=== PATIENT | female | born 1945 | race Caucasian/White ===

== ENCOUNTER 2025-03-15 08:35 | Inpatient (IN) ==
[2025-03-15 09:13] LABS: Basophils # (auto) 0.02 K/uL (0.00-0.20); Basophils % (auto) 0.4 %; Eosinophils # (auto) 0.02 K/uL (0.00-0.50); Eosinophils % (auto) 0.4 %; Hematocrit (blood only) 40.5 % (37.0-47.0); Immature Granulocytes # (auto) 0.02 K/uL (0.01-0.20); Immature Granulocytes % (auto) 0.4 %; Lymphocytes # (auto) 1.27 K/uL (1.20-3.40); Mean Corpuscular Hemoglobin 27.1 pg (25.0-34.0); Mean Corpuscular Hgb Conc 32.1 g/dL (32.0-36.0); Mean Corpuscular Volume 84.4 fL (80.0-100.0); Mean Platelet Volume 11.9 fL (9.4-12.4); Monocytes # (auto) 0.36 K/uL (0.11-0.59); Monocytes % (auto) 7.4 %; Neutrophils % (auto) 65.4 %; Platelet Count 171 K/uL (130-400); RDW Coefficient of Variation 14.5 % (11.5-14.5); RDW Standard Deviation 44.6 fL (36.4-46.3); White Blood Count 4.89 K/ul (4.8-10.8)
--- NOTE | 2025-03-15 09:13 | Emergency Department Note ---
Impression & Plan Symptomatic bradycardia, CHB (complete heart block), HTN (hypertension) ED Provider Note Provider: Allan Cason MD CHIEF COMPLAINT: Short of breath, weakness HISTORY OF PRESENT ILLNESS: Patient is a 79-year-old female history of atrial fibrillation per records presenting here today stating over the past week or so some increased shortness of breath and has been suffering from worsening fatigue. Patient states an occasional cough and sinus congestion but denies a significant fevers or sore throat. No abdominal pain or nausea. Denies any falls but has felt a little bit weak and this morning feeling weak even walking from bedroom to the bathroom and thus came here for evaluation. Noted by EMS to be hypertensive with a low heart rate. Patient states he been feeling cold recently. Denies to me any chest pain although EMS reported little bit of pain in the left chest to palpation. States that again when she gets up and tries to move she feels dizzy and in bed mainly now just feels fatigued. PAST MEDICAL HISTORY: As noted above MEDICATIONS: Not currently taking any SOCIAL HISTORY: Originally from [place], lives by herself with 2 cats PHYSICAL EXAM: GENERAL: alert and oriented in no acute distress on stretcher Head: normocephalic and atraumatic EYES: No injection, discharge or icterus. EOMI. NECK: Trachea midline. ENT: Mucous membranes pink and moist. LUNGS: Airway patent. No retractions. Breath sounds clear HEART: Regular bradycardic rate and rhythm. No chest wall tenderness ABDOMEN: Soft and non-tender, without guarding or rebound. SKIN: Acyanotic, warm, dry, without rashes EXTREMITIES: Without tenderness trace pedal edema bilaterally with some chronic dry eczema present on the lower legs. NEUROLOGICAL: No focal deficits. No aphasia. No facial droop or slurred speech. EK bpm appears to be a complete heart block with a left bundle branch block. No clear acute ST segment elevation or depression. CONTINUOUS CARDIAC MONITORING: was ordered and showed a heart rate of 30s to 40s bpm in complete heart block Patient's laboratory studies and imaging reviewed. Differential includes Infection, dehydration, metabolic abnormality, hypo/hyperglycemia, electrolyte disturbance, anemia, hypoxia, cardiac sources, intracerebral event, toxicologic, neurologic, as well as other pathologies. IMPRESSION/MEDICAL DECISION MAKING: Patient's easily alert and arousable without focal neurological deficit on exam. Notably profoundly bradycardic with significant hypertension. Denies any chest pain to me. Dyspnea on exertion and exercise intolerance. Review of EKG appears to show a complete heart block. Records indicate history of atrial fibrillation the patient denies known cardiac history and states he is currently not taking any medications. Basic labs are sent including troponin and a Lyme screen and TSH. Not on oxygen on room air here not hypoxic. Do question her bradycardia causing her symptoms and doubt this represents dissection or PE. Did reach out to discuss with cardiology Dr. Palomares these findings. No significant leukocytosis or anemia. No skin electrolyte abnormality. Normal renal function. Troponin mildly elevated 29. Again no chest pain. No evidence of UTI. TSH normal. Pacing pads in place. Patient stable at this point will defer other medications. Will bring in for further cardiac evaluation and care. Hospitalist team consulted. Patient agreeable to this plan. DIAGNOSIS: Complete heart block, symptomatic bradycardia, hypertension DISPOSITION: Hospitalist will evaluate Patient was agreeable with this plan. Critical Care I have personally spent 32 minutes of critical care time in the direct management of this patient. This includes bedside care, interpretation of diagnostic studies, and testing, discussion with consultants, patient, and family members, and other required patient management activities. These 32 minutes is in excess of all separately billable procedures. 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 Feels Safe at Home: Yes Diet: regular caffeine: Yes (tea) during the past year weight has: remained stable Dental Care, Regularly: No Physical Activity Frequency: 1-2 Times per Week Seatbelt Use: always Sunscreen Use: No Allergies Allergies Allergy/AdvReac Type Severity Reaction Status Date / Time No Known Allergies Allergy Unknown Verified 01/06/25 13:04 Home Meds Home Medications Medication Instructions Recorded Confirmed aspirin 81 mg tablet,delayed 81 mg PO DAILY 03/25/19 03/15/25 release ([place] Low Dose Aspirin) cyanocobalamin (vitamin B-12) 5,000 mcg sublingual DAILY 03/25/19 03/15/25 5,000 mcg/mL sublingual drops (Vitamin B-12) metformin 500 mg tablet,extended 500 mg PO DAILY 03/15/25 03/15/25 release 24 hr Previous Rx's Medication Instructions Recorded oxybutynin chloride 5 mg 5 mg PO DAILY #30 tabs 01/06/25 tablet,extended release 24 hr cholecalciferol (vitamin D3) 1,250 50,000 unit PO .1qw #14 caps 01/09/25 mcg (50,000 unit) capsule glimepiride 1 mg tablet 1 mg PO DAILY #30 tabs 02/03/25 tramadol 50 mg tablet 50 mg PO Q6H PRN Pain #100 tabs 03/03/25 Results & Data (ED) Vital Signs Vital Signs - 24 hr 03/15/25 08:45 03/15/25 08:46 03/15/25 08:47 Temperature 36.8 C Temperature Source Oral Pulse Rate 39 L 40 L Pulse Rate from SpO2 Sensor Pulse Rhythm Regular Pulse Strength Normal Respiratory Rate 20 Respiratory Effort / Characteristics Non-Labored Respiratory Depth Normal Blood Pressure 211/51 H 224/59 H Blood Pressure Mean 104 107 Blood Pressure Position Lying Pulse Oximetry 95 Oxygen Delivery Method Room Air Sepsis Recent Fever Within 48 Hours No Sepsis New/Unexplained Change in Mental Status N/A Sepsis Action Taken by Nursing No Action Required 03/15/25 08:48 03/15/25 08:56 03/15/25 09:00 Temperature Temperature Source Pulse Rate 38 L 40 L Pulse Rate from SpO2 Sensor 38 L 40 L Pulse Rhythm Pulse Strength Respiratory Rate 22 28 H Respiratory Effort / Characteristics Respiratory Depth Blood Pressure Blood Pressure Mean Blood Pressure Position Pulse Oximetry 93 94 95 Oxygen Delivery Method Room Air Sepsis Recent Fever Within 48 Hours Sepsis New/Unexplained Change in Mental Status Sepsis Action Taken by Nursing 03/15/25 09:06 03/15/25 09:30 03/15/25 09:33 Temperature Temperature Source Pulse Rate 40 L 40 L Pulse Rate from SpO2 Sensor 39 L 43 L Pulse Rhythm Pulse Strength Respiratory Rate 17 16 Respiratory Effort / Characteristics Respiratory Depth Blood Pressure 195/59 H Blood Pressure Mean 83 Blood Pressure Position Pulse Oximetry 94 91 Oxygen Delivery Method Sepsis Recent Fever Within 48 Hours Sepsis New/Unexplained Change in Mental Status Sepsis Action Taken by Nursing 03/15/25 09:45 03/15/25 10:02 03/15/25 10:15 Temperature Temperature Source Pulse Rate 37 L 40 L Pulse Rate from SpO2 Sensor 37 L 39 L Pulse Rhythm Pulse Strength Respiratory Rate 14 22 Respiratory Effort / Characteristics Respiratory Depth Blood Pressure 181/55 H Blood Pressure Mean 112 Blood Pressure Position Pulse Oximetry 94 95 Oxygen Delivery Method Sepsis Recent Fever Within 48 Hours Sepsis New/Unexplained Change in Mental Status Sepsis Action Taken by Nursing 03/15/25 10:48 03/15/25 10:56 03/15/25 11:09 Temperature Temperature Source Pulse Rate 40 L 39 L Pulse Rate from SpO2 Sensor 40 L 39 L Pulse Rhythm Pulse Strength Respiratory Rate 23 22 Respiratory Effort / Characteristics Respiratory Depth Blood Pressure 221/81 H 221/81 H Blood Pressure Mean 127 157 Blood Pressure Position Pulse Oximetry 96 96 Oxygen Delivery Method Sepsis Recent Fever Within 48 Hours Sepsis New/Unexplained Change in Mental Status Sepsis Action Taken by Nursing Laboratory Data 03/15/25 08:45 03/15/25 08:45 Lab Results 03/15/25 03/15/25 03/15/25 Range/Units 08:45 09:15 09:17 WBC 4.89 (4.8-10.8) K/ul RBC 4.80 (4.20-5.40) M/uL Hgb 13.0 (12.0-16.0) g/dl Hct 40.5 (37.0-47.0) % MCV 84.4 (80.0-100.0) fL MCH 27.1 (25.0-34.0) pg MCHC 32.1 (32.0-36.0) g/dL RDW Std Deviation 44.6 (36.4-46.3) fL RDW Coeff of Nasima 14.5 (11.5-14.5) % Plt Count 171 (130-400) K/uL MPV 11.9 (9.4-12.4) fL Immature Gran % (Auto) 0.4 % Neut % (Auto) 65.4 % Lymph % (Auto) 26.0 % [place] % (Auto) 7.4 % Eos % (Auto) 0.4 % Baso % (Auto) 0.4 % Neut # (Auto) 3.20 (1.40-6.50) K/uL Lymph # (Auto) 1.27 (1.20-3.40) K/uL [place] # (Auto) 0.36 (0.11-0.59) K/uL Eos # (Auto) 0.02 (0.00-0.50) K/uL Baso # (Auto) 0.02 (0.00-0.20) K/uL Immature Gran # (Auto) 0.02 (0.01-0.20) K/uL PT 11.3 (9.0-12.0) Seconds INR 1.0 (0.9-1.1) APTT 27 (21-31) Seconds PTT Ratio 1.0 Sodium 138 (136-145) mmol/L Potassium 4.5 (3.5-5.1) mmol/L Chloride 105 (98-107) mmol/L Carbon Dioxide 26 (21-32) mmol/L Anion Gap 7 (3-11) BUN 19 (6-23) mg/dl Creatinine 1.13 (0.6-1.2) mg/dl Est Cr Clr Drug Dosing 42.5 ml/min eGFR 48.88 BUN/Creatinine Ratio 16.8 (10-20) Glucose 152 H (70-99(Fasting)) mg/dl Calcium 9.1 (8.6-10.3) mg/dl Magnesium 2.1 (1.7-2.4) mg/dl Total Bilirubin 1.1 H (0.2-1.0) mg/dl AST 39 (13-39) U/L ALT 34 (7-52) U/L Alkaline Phosphatase 94 (34-104) U/L Troponin I High Sens 29.4 H (0-14) pg/ml Total Protein 7.1 (6.0-8.3) gm/dl Albumin 3.9 (3.4-5.0) gm/dl Globulin 3.2 (2.5-4.0) gm/dl Albumin/Globulin Ratio 1.2 (0.9-2) TSH 1.563 (0.300-4.500) uIu/ml Urine Color Yellow Urine Appearance Clear (Clear) Urine pH 6.0 (4.5-7.5) Ur Specific [place] 1.007 (1.000-1.030) Urine Protein 1+ H (Negative) Urine Glucose (UA) Negative (Negative) Urine Ketones Trace H (Negative) Urine Blood 1+ H (Negative) Urine Nitrite Negative (Negative) Urine Bilirubin Negative (Negative) Urine Urobilinogen Negative (Negative) Ur Leukocyte Esterase Negative (Negative) Urine WBC (Auto) 0-5 (0-5) /hpf Urine RBC (Auto) 0-2 (0-2) /hpf U Hyaline Cast (Auto) 0-2 (0-2) /lpf U Epithel Cells (Auto) 0-2 (0-2) /hpf Urine Bacteria (Auto) None Seen (None Seen) Adenovirus (PCR) Not Detected (NotDetected) B. pertussis DNA (PCR) Not Detected (NotDetected) B.parapertussis DNA PCR Not Detected (NotDetected) Lyme Disease Screen Negative (Negative) C. pneumoniae DNA (PCR) Not Detected (NotDetected) Coronavirus OC43 (PCR) Not Detected (NotDetected) Coronavirus HKU1 (PCR) Not Detected (NotDetected) Coronavirus 229E (PCR) Not Detected (NotDetected) SARS-CoV-2 (PCR) Not Detected (NotDetected) Coronavirus NL63 (PCR) Not Detected (NotDetected) Human Metapneumovir PCR Not Detected (NotDetected) Influenza Type A (PCR) Not Detected (NotDetected) Influenza Type B (PCR) Not Detected (NotDetected) M. pneumoniae (PCR) Not Detected (NotDetected) Parainfluenza 1 (PCR) Not Detected (NotDetected) Parainfluenza 2 (PCR) Not Detected (NotDetected) Parainfluenza 3 (PCR) Not Detected (NotDetected) Parainfluenza 4 (PCR) Not Detected (NotDetected) RSV (PCR) Not Detected (NotDetected) Entero/Rhino (PCR) Not Detected (NotDetected) 03/15/25 Range/Units 10:45 WBC (4.8-10.8) K/ul RBC (4.20-5.40) M/uL Hgb (12.0-16.0) g/dl Hct (37.0-47.0) % MCV (80.0-100.0) fL MCH (25.0-34.0) pg MCHC (32.0-36.0) g/dL RDW Std Deviation (36.4-46.3) fL RDW Coeff of Nasima (11.5-14.5) % Plt Count (130-400) K/uL MPV (9.4-12.4) fL Immature Gran % (Auto) % Neut % (Auto) % Lymph % (Auto) % [place] % (Auto) % Eos % (Auto) % Baso % (Auto) % Neut # (Auto) (1.40-6.50) K/uL Lymph # (Auto) (1.20-3.40) K/uL [place] # (Auto) (0.11-0.59) K/uL Eos # (Auto) (0.00-0.50) K/uL Baso # (Auto) (0.00-0.20) K/uL Immature Gran # (Auto) (0.01-0.20) K/uL PT (9.0-12.0) Seconds INR (0.9-1.1) APTT (21-31) Seconds PTT Ratio Sodium (136-145) mmol/L Potassium (3.5-5.1) mmol/L Chloride (98-107) mmol/L Carbon Dioxide (21-32) mmol/L Anion Gap (3-11) BUN (6-23) mg/dl Creatinine (0.6-1.2) mg/dl Est Cr Clr Drug Dosing ml/min eGFR BUN/Creatinine Ratio (10-20) Glucose (70-99(Fasting)) mg/dl Calcium (8.6-10.3) mg/dl Magnesium (1.7-2.4) mg/dl Total Bilirubin (0.2-1.0) mg/dl AST (13-39) U/L ALT (7-52) U/L Alkaline Phosphatase (34-104) U/L Troponin I High Sens 33.6 H (0-14) pg/ml Total Protein (6.0-8.3) gm/dl Albumin (3.4-5.0) gm/dl Globulin (2.5-4.0) gm/dl Albumin/Globulin Ratio (0.9-2) TSH (0.300-4.500) uIu/ml Urine Color Urine Appearance (Clear) Urine pH (4.5-7.5) Ur Specific [place] (1.000-1.030) Urine Protein (Negative) Urine Glucose (UA) (Negative) Urine Ketones (Negative) Urine Blood (Negative) Urine Nitrite (Negative) Urine Bilirubin (Negative) Urine Urobilinogen (Negative) Ur Leukocyte Esterase (Negative) Urine WBC (Auto) (0-5) /hpf Urine RBC (Auto) (0-2) /hpf U Hyaline Cast (Auto) (0-2) /lpf U Epithel Cells (Auto) (0-2) /hpf Urine Bacteria (Auto) (None Seen) Adenovirus (PCR) (NotDetected) B. pertussis DNA (PCR) (NotDetected) B.parapertussis DNA PCR (NotDetected) Lyme Disease Screen (Negative) C. pneumoniae DNA (PCR) (NotDetected) Coronavirus OC43 (PCR) (NotDetected) Coronavirus HKU1 (PCR) (NotDetected) Coronavirus 229E (PCR) (NotDetected) SARS-CoV-2 (PCR) (NotDetected) Coronavirus NL63 (PCR) (NotDetected) Human Metapneumovir PCR (NotDetected) Influenza Type A (PCR) (NotDetected) Influenza Type B (PCR) (NotDetected) M. pneumoniae (PCR) (NotDetected) Parainfluenza 1 (PCR) (NotDetected) Parainfluenza 2 (PCR) (NotDetected) Parainfluenza 3 (PCR) (NotDetected) Parainfluenza 4 (PCR) (NotDetected) RSV (PCR) (NotDetected) Entero/Rhino (PCR) (NotDetected) Administered Medications Hydralazine HCl (Hydralazine Hcl 20 Mg/Ml Vial) 10 mg IV Q6 PRN PRN Reason: Hypertension Stop: 04/14/25 14:13 Last Admin: 03/15/25 14:49 Dose: 10 mg Documented By: E Imaging Data Radiologist's Impression: Chest X-Ray 03/15/25 09:00 XR chest 1V portable CLINICAL HISTORY: Dyspnea COMPARISON STUDY: 03/25/2019 FINDINGS: Stable cardiomegaly without pulmonary vascular congestion. No effusion, consolidation, or pneumothorax. IMPRESSION: No acute findings. ACT 112: Negative or not required by law. Electronically signed by: Edgardo Anderson M.D. 03/15/2025 9:55 AM Discharge Plan Visit Data Chief Complaint: Cardiac Assessment Stated Complaint: SOB, RIB PAIN, BRADYCARDIA ED Provider: Allan Cason Discharge Problem: Symptomatic bradycardia, CHB (complete heart block), HTN (hypertension) Patient Disposition: Admitted As Inpatient Condition: Serious Discharge Instructions Interventions: ED Discharge Assessment Last Done: 03/15/25 14:13 ED AMA/LWBS Discharge Assessment Last Done: 03/15/25 15:15
[2025-03-15 09:35] LABS: Albumin Globulin Ratio 1.2 (0.9-2); Albumin Level 3.9 gm/dl (3.4-5.0); BUN Creatinine Ratio 16.8 (10-20); Bilirubin,Total 1.1 mg/dl (0.2-1.0); Calcium 9.1 mg/dl (8.6-10.3); Creatinine Clr Calc Pharmacy 42.5 ml/min; Globulin 3.2 gm/dl (2.5-4.0); Magnesium 2.1 mg/dl (1.7-2.4); Potassium 4.5 mmol/L (3.5-5.1); Total Protein 7.1 gm/dl (6.0-8.3)
[2025-03-15 09:41] LABS: Appearance Urine Clear (Clear); Bacteria Urine Automated None Seen (None Seen); Bilirubin Urine Negative (Negative); Blood Urine 1+ (Negative); Cast Urine Automated 0-2 /lpf (0-2); Color Urine Yellow; Epithelial Cell Urine Auto 0-2 /hpf (0-2); Glucose Urine UA Negative (Negative); Ketones Urine Trace (Negative); Leukocyte Esterase Urine Negative (Negative); Nitrite Urine Negative (Negative); Protein Urine 1+ (Negative); RBC Urine Automated 0-2 /hpf (0-2); Specific Gravity Urine 1.007 (1.000-1.030); Urobilinogen Urine Negative (Negative); WBC Urine Automated 0-5 /hpf (0-5)
[2025-03-15 09:41] LABS: Troponin I High Sensitivity 29.4 pg/ml (0-14)
[2025-03-15 09:43] LABS: Partial Thromboplastin Time 27 Seconds (21-31); Prothrombin Time 11.3 Seconds (9.0-12.0)
[2025-03-15 09:50] LABS: Thyroid Stimulating Hormone 1.563 uIu/ml (0.300-4.500)
--- NOTE | 2025-03-15 09:57 | XRay Report ---
XR chest 1V portable CLINICAL HISTORY: Dyspnea COMPARISON STUDY: 03/25/2019 FINDINGS: Stable cardiomegaly without pulmonary vascular congestion. No effusion, consolidation, or p neumothorax. IMPRESSION: No acute findings. ACT 112: Negative or not required by law. Electronically signed by: Edgardo Anderson M.D. 03/15/2025 9:55 AM
[2025-03-15 10:16] LABS: Adenovirus PCR Not Detected (NotDetected); Bordetella parapertussis PCR Not Detected (NotDetected); Bordetella pertussis PCR Not Detected (NotDetected); Chlamydia pneumoniae PCR Not Detected (NotDetected); Coronavirus 229E PCR Not Detected (NotDetected); Coronavirus CoV-2 (COVID19)PCR Not Detected (NotDetected); Coronavirus HKU1 PCR Not Detected (NotDetected); Coronavirus NL63 PCR Not Detected (NotDetected); Coronavirus OC43PCR Not Detected (NotDetected); Human Metapneumovirus PCR Not Detected (NotDetected); Influenza A PCR Not Detected (NotDetected); Influenza B PCR Not Detected (NotDetected); Mycoplasma pneumoniae PCR Not Detected (NotDetected); Parainfluenza Virus 1 PCR Not Detected (NotDetected); Parainfluenza Virus 2 PCR Not Detected (NotDetected); Parainfluenza Virus 3 PCR Not Detected (NotDetected); Parainfluenza Virus 4 PCR Not Detected (NotDetected); Respiratory Syncytial VirusPCR Not Detected (NotDetected); Rhinovirus/Enterovirus PCR Not Detected (NotDetected)
--- NOTE | 2025-03-15 10:42 | Cardiology Consultation ---
Date of Consultation March 15, 2025 Assessment & Plan (1) Symptomatic bradycardia: (2) Second degree AV block: (3) H/O atrial fibrillation without current medication: Plan 1. Symptomatic bradycardia: This is the likely etiology of her worsening symptoms. She is known to have an element of chronic fatigue. However, her exertional intolerance and worsening breathing difficulty is new. This is likely related to her bradycardia. 2. Second-degree AV block: She appears to have 2-1 AV conduction. Also wide- complex QRS consistent with left bundle branch block. This would imply in for his seen disease. This is resulted in the associated bradycardia and symptoms. Not on any medications which would cause bradycardia. Lyme negative. No other reversible etiology. I think the treatment is a permanent pacemaker. I discussed the procedure and the attendant risks and benefits with the patient. Will plan on proceeding tomorrow morning. She is to stay on bedrest until that time. If she has an element of hemodynamic compromise between now and then we can take her to the [facility] for a temporary transvenous pacemaker. 3. Atrial fibrillation: This seems to be a very remote diagnosis. She describes wearing a monitor at 1 point in March told she had some atrial fib rillation. She also reports seeing a long wall shear operator at some point in being told this was not a clinical concern. I could not find any documentation in her [facility] or [facility] records regarding this particular problem. She has worn some monitors over the years. These reports are available in her [facility] record and there is no mention of atrial fibrillation. I do not think we need to pursue this at this time. With a pacemaker we will have continuous monitoring of her atrial rhythm. History of Present Illness Reason for Consultation: Symptomatic bradycardia Requesting Physician: Janey Attending Physician: Madhavi History of Present Illness The patient is an 79-year-old woman without a known history of cardiac disease who presents to the emergency room with symptoms of worsening fatigue, exercise intolerance and exertional dyspnea. Patient states that in general she has been more fatigued lately. She has had some more difficulty ambulating and walking for long distances over the past few months. However, over the past 2 weeks the symptoms have worsened significantly and today bother her enough that she sought medical attention. She is fairly sedentary overall. She ambulates with a cane. Her daily activities generally involve getting around her home or some light outdoor activity. Recently she has been having shortness of breath with mild activity. No associated dizziness or lightheadedness. No syncope. No exertional chest pain. No sense of palpitations currently. Her emergency room evaluation revealed significant bradycardia with second- degree AV block. The patient denied other recent constitutional symptoms such as fevers or chills. She reports some mild lower extremity edema which waxes and wanes in severity. She notices some occasional palpitations at nighttime but often with coughing or deep breathing these resolved promptly. No extended episodes. Very remote history of syncope. None recently. Allergies Allergy/AdvReac Type Severity Reaction Status Date / Time No Known Allergies Allergy Unknown Verified 01/06/25 13:04 Home Medications Medication Instructions Recorded Confirmed Type aspirin 81 mg tablet,delayed 81 mg PO DAILY 03/25/19 03/15/25 History release (Gu[place]upe Low Dose Aspirin) cyanocobalamin (vitamin B-12) 5,000 mcg sublingual DAILY 03/25/19 03/15/25 History 5,000 mcg/mL sublingual drops (Vitamin B-12) oxybutynin chloride 5 mg 5 mg PO DAILY #30 tabs 01/06/25 03/15/25 Rx tablet,extended release 24 hr cholecalciferol (vitamin D3) 1,250 50,000 unit PO .1qw #14 caps 01/09/25 03/15/25 Rx mcg (50,000 unit) capsule glimepiride 1 mg tablet 1 mg PO DAILY #30 tabs 02/03/25 03/15/25 Rx tramadol 50 mg tablet 50 mg PO Q6H PRN Pain #100 tabs 03/03/25 03/15/25 Rx metformin 500 mg tablet,extended 500 mg PO DAILY 03/15/25 03/15/25 History release 24 hr Patient History Surgical History History of cholecystectomy Social History (Updated 01/06/25 @ 13:06 by MERARI Corral) Smoking Status: Former smoker Second Hand Exposure: No; Do You Dip or Chew Tobacco: No; Hx Alcohol Use: No Hx Substance Use: No Preferred Language: Maori marital status: Current Living Situation: Alone Current Living Situation Comment: 2 cats 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 Mood affect appear normal. She answered all questions appropriately. HEENT: Sclerae are anicteric. Pupils are equal and reactive to light and accommodation. Extraocular movements were intact. Neuro: Cranial nerves intact Lungs: Lungs are clear to auscultation bilaterally. There are no rales wheezes or rhonchi. She has normal respiratory effort without use of accessory muscles. There is normal pulmonary excursion. Cardiac: The rhythm was regular. Rate was slow. S1 and S2 were normal. Soft holosystolic murmur. The PMI was not markedly displaced on palpation. Abdomen: The abdomen was soft and nontender. Extremities: Patient has bilateral radial pulses that are equal in intensity. There is no evidence cyanosis or clubbing. Mild lower extremity edema bilater ally. Dry skin. Some mild erythema around the ankles bilaterally. Skin: There are no rashes noted on examination today. Results & Data Vital Signs (Past 12 Hours) Vital Signs Temp Pulse Resp BP Pulse Ox O2 Del Method 03/15/25 10:15 40 L 22 95 03/15/25 10:02 181/55 H 03/15/25 09:45 37 L 14 94 03/15/25 09:33 40 L 16 91 03/15/25 09:30 195/59 H 03/15/25 09:06 40 L 17 94 03/15/25 09:00 40 L 28 H 95 03/15/25 08:56 94 Room Air 03/15/25 08:48 38 L 22 93 03/15/25 08:47 224/59 H 03/15/25 08:46 36.8 C 40 L 20 211/51 H 95 Room Air 03/15/25 08:45 39 L Laboratory Results Abnormal Lab Results 03/15/25 03/15/25 03/15/25 08:45 09:15 09:17 WBC 4.89 RBC 4.80 Hgb 13.0 Hct 40.5 MCV 84.4 MCH 27.1 MCHC 32.1 RDW Std Deviation 44.6 RDW Coeff of Nasima 14.5 Plt Count 171 MPV 11.9 Immature Gran % (Auto) 0.4 Neut % (Auto) 65.4 Lymph % (Auto) 26.0 [place] % (Auto) 7.4 Eos % (Auto) 0.4 Baso % (Auto) 0.4 Neut # (Auto) 3.20 Lymph # (Auto) 1.27 [place] # (Auto) 0.36 Eos # (Auto) 0.02 Baso # (Auto) 0.02 Immature Gran # (Auto) 0.02 PT 11.3 INR 1.0 APTT 27 PTT Ratio 1.0 Sodium 138 Potassium 4.5 Chloride 105 Carbon Dioxide 26 Anion Gap 7 BUN 19 Creatinine 1.13 Est Cr Clr Drug Dosing 42.5 eGFR 48.88 BUN/Creatinine Ratio 16.8 Glucose 152 H Calcium 9.1 Magnesium 2.1 Total Bilirubin 1.1 H AST 39 ALT 34 Alkaline Phosphatase 94 Troponin I High Sens 29.4 H Total Protein 7.1 Albumin 3.9 Globulin 3.2 Albumin/Globulin Ratio 1.2 TSH 1.563 Urine Color Yellow Urine Appearance Clear Urine pH 6.0 Ur Specific [place] 1.007 Urine Protein 1+ H Urine Glucose (UA) Negative Urine Ketones Trace H Urine Blood 1+ H Urine Nitrite Negative Urine Bilirubin Negative Urine Urobilinogen Negative Ur Leukocyte Esterase Negative Urine WBC (Auto) 0-5 Urine RBC (Auto) 0-2 U Hyaline Cast (Auto) 0-2 U Epithel Cells (Auto) 0-2 Urine Bacteria (Auto) None Seen Adenovirus (PCR) Not Detected B. pertussis DNA (PCR) Not Detected B.parapertussis DNA PCR Not Detected Lyme Disease Screen Negative C. pneumoniae DNA (PCR) Not Detected Coronavirus OC43 (PCR) Not Detected Coronavirus HKU1 (PCR) Not Detected Coronavirus 229E (PCR) Not Detected SARS-CoV-2 (PCR) Not Detected Coronavirus NL63 (PCR) Not Detected Human Metapneumovir PCR Not Detected Influenza Type A (PCR) Not Detected Influenza Type B (PCR) Not Detected M. pneumoniae (PCR) Not Detected Parainfluenza 1 (PCR) Not Detected Parainfluenza 2 (PCR) Not Detected Parainfluenza 3 (PCR) Not Detected Parainfluenza 4 (PCR) Not Detected RSV (PCR) Not Detected Entero/Rhino (PCR) Not Detected Diagnostic Findings Chest x-ray obtained today did not reveal any acute cardiopulmonary findings Cardiac catheterization 2011: Small coronaries without obstructive coronary disease Echocardiogram 2011: Normal LV systolic function with stage I diastolic dysfunction. No significant valvular heart disease PG Care Time/CCT Total # of Minutes Spent Total Time Spent with Patient: Total time spent is greater than 50% in coordination of care (as documented) at patient's floor/unit and/or counseling patient: Coding Level of Care Code 85073 INT INP/OBS CARE 3/75MIN Diagnoses Symptomatic bradycardia R00.1 Second degree AV block I44.1 H/O atrial fibrillation without current medication Z86.79
--- NOTE | 2025-03-15 11:19 | History & Physical Report ---
Date of Service March 15, 2025 Assessment & Plan (1) Second degree AV block: (2) HTN (hypertension): (3) Symptomatic bradycardia: (4) Borderline type 2 diabetes mellitus: (5) H/O atrial fibrillation without current medication: (6) Chronic pain: Plan This is an 79-year-old female who presented with exertional dyspnea and fatigue, was found to be bradycardic. EKG showed second-degree heart block. Patient was evaluated by cardiology. Plan for pacemaker placement tomorrow. 1. Second-degree heart block TSH normal Lyme screen negative Not on any rate controlling medications Heart block and symptomatic bradycardia: Likely etiology for her symptoms Cardiology involved Plan for pacemaker placement tomorrow N.p.o. postmidnight 2. Hypertensive urgency Blood pressure quite elevated Will treat with IV hydralazine as needed Could be due to stress versus compensation of bradycardia Monitor 3. Prediabetes A1c came back mildly elevated at 6.5 Per PCP notes, she has declined starting hypoglycemic agents 4. Question of atrial fibrillation This was documented in PCP notes Patient is not on any medication for it. Unclear if she has it Per cardiology, we do not need to pursue this at this time. With the pacemaker, she will have continuous monitoring Full code VTE prophylaxis: SCDs. Patient will have pacemaker placed tomorrow. Will hold off on Lovenox tomorrow. History of Present Illness Chief Complaint: Shortness of breath on exertion and fatigue over the past 2 weeks Primary Care Provider: Geraldine Phipps MD This is an 79-year-old female who takes no medications, presents with the above chief complaint. The patient stated that over the past 2 weeks or so, she has been extremely tired, sleeping more, getting short of breath on minimal exertion. The symptoms have been getting progressively worse and that she decided to get medical attention. In the ER, she was noted to be bradycardic and her EKG showed complete heart block. She is thus being admitted to the hospital. She denied dizziness or lightheadedness. She denied chest pain. She denied loss of consciousness. No fever or chills. No cough. On further questioning, she stated that she had some leg swelling off and on. She denied any recent outdoor activities or tick exposure. She was seen in consultation by cardiology in the emergency room. An echocardiogram has been ordered and the plan is for a pacemaker placement tomorrow. Past medical history 1. Borderline diabetes mellitus. The patient says that she is borderline. Prior notes documented that she declined medications for diabetes 2. History of atrial fibrillation. History of it documented in PCP notes. However patient was not interested in seeing cardiology or starting any medications. Allergies Allergy/AdvReac Type Severity Reaction Status Date / Time No Known Allergies Allergy Unknown Verified 01/06/25 13:04 Home Medications Medication Instructions Recorded Confirmed Type aspirin 81 mg tablet,delayed 81 mg PO DAILY 03/25/19 03/15/25 History release (Gu[place]upe Low Dose Aspirin) cyanocobalamin (vitamin B-12) 5,000 mcg sublingual DAILY 03/25/19 03/15/25 History 5,000 mcg/mL sublingual drops (Vitamin B-12) oxybutynin chloride 5 mg 5 mg PO DAILY #30 tabs 01/06/25 03/15/25 Rx tablet,extended release 24 hr cholecalciferol (vitamin D3) 1,250 50,000 unit PO .1qw #14 caps 01/09/25 03/15/25 Rx mcg (50,000 unit) capsule glimepiride 1 mg tablet 1 mg PO DAILY #30 tabs 02/03/25 03/15/25 Rx tramadol 50 mg tablet 50 mg PO Q6H PRN Pain #100 tabs 03/03/25 03/15/25 Rx metformin 500 mg tablet,extended 500 mg PO DAILY 03/15/25 03/15/25 History release 24 hr Past Med/Surg History Problem List Second degree AV block HTN (hypertension) (Acute) Symptomatic bradycardia (Acute) Decreased body height Depression Urinary incontinence Borderline type 2 diabetes mellitus Chronic pain H/O atrial fibrillation without current medication Fatigue History of cholecystectomy Social History Smoking Status: Former smoker Second Hand Exposure: No; Do You Dip or Chew Tobacco: No; Hx Alcohol Use: No Hx Substance Use: No Preferred Language: Turkmen Communication Ability: Effective Dog Bather Required: No Beliefs That Will Affect Care: None marital status: Current Living Situation: Alone Current Living Situation Comment: 2 cats current occupational status: 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 Normal effort Abdomen: Soft/nontender/nondistended. No hepatosplenomegaly Extremities: No clubbing/cyanosis. Trace bilateral edema Behavior: Appropriate, cooperative Results & Data Results & Data Vital Signs (Past 12 Hours) Vital Signs Temp Pulse Resp BP Pulse Ox O2 Del Method 03/15/25 10:48 40 L 23 221/81 H 96 03/15/25 10:15 40 L 22 95 03/15/25 10:02 181/55 H 03/15/25 09:45 37 L 14 94 03/15/25 09:33 40 L 16 91 03/15/25 09:30 195/59 H 03/15/25 09:06 40 L 17 94 03/15/25 09:00 40 L 28 H 95 03/15/25 08:56 94 Room Air 03/15/25 08:48 38 L 22 93 03/15/25 08:47 224/59 H 03/15/25 08:46 36.8 C 40 L 20 211/51 H 95 Room Air 03/15/25 08:45 39 L Laboratory Results Abnormal lab results 03/15/25 03/15/25 03/15/25 Range/Units 08:45 09:15 10:45 Glucose 152 H (70-99(Fasting)) mg/dl Hemoglobin A1c (4.5-5.6) % Total Bilirubin 1.1 H (0.2-1.0) mg/dl Troponin I High Sens 29.4 H 33.6 H (0-14) pg/ml Urine Protein 1+ H (Negative) Urine Ketones Trace H (Negative) Urine Blood 1+ H (Negative) 03/15/25 Range/Units 14:23 Glucose (70-99(Fasting)) mg/dl Hemoglobin A1c 6.5 H (4.5-5.6) % Total Bilirubin (0.2-1.0) mg/dl Troponin I High Sens 56.6 H* D (0-14) pg/ml Urine Protein (Negative) Urine Ketones (Negative) Urine Blood (Negative) Diagnostic Findings Chest X-Ray 03/15/25 09:00 XR chest 1V portable CLINICAL HISTORY: Dyspnea COMPARISON STUDY: 03/25/2019 FINDINGS: Stable cardiomegaly without pulmonary vascular congestion. No effusion, consolidation, or pneumothorax. IMPRESSION: No acute findings. ACT 112: Negative or not required by law. Electronically signed by: Edgardo Anderson M.D. 03/15/2025 9:55 AM Code Status & VTE Plan VTE Prophylaxis Plan VTE Prophylaxis will be ordered: Yes PG Care Time/CCT Total # of Minutes Spent Total Time Spent with Patient: Total time spent is greater than 50% in coordination of care (as documented) at patient's floor/unit and/or counseling patient: Coding Level of Care Code 73689 INT INP/OBS CARE 2/55MIN Diagnoses Second degree AV block I44.1 HTN (hypertension) I10 Symptomatic bradycardia R00.1 Borderline type 2 diabetes mellitus R73.03 H/O atrial fibrillation without current medication Z86.79 Chronic pain syndrome G89.4 Chronic pain type: chronic pain syndrome (6) Chronic pain Chronic pain type: chronic pain syndrome Qualified Code(s): G89.4 - Chronic pain syndrome
[2025-03-15 14:32] LABS: Estimated Average Glucose 140 mg/dl; Hemoglobin A1C 6.5 % (4.5-5.6)
[2025-03-15] MEDS: hydrALAZINE HCL 20 MG/ML VIAL IV PRN ×2 (14:49→20:30)
--- NOTE | 2025-03-15 18:20 | XCELERA ---
[id number]
[2025-03-15] MEDS: ONDANSETRON INJ 2 MG/ML 2 ML VIAL IV PRN (20:31)
[2025-03-15] MEDS: MELATONIN 3 MG TAB PO PRN (20:31)
[2025-03-15] MEDS: ENOXAPARIN INJ 40 MG/0.4 ML SYR SQ SCH (23:02)
[2025-03-16] MEDS: traMADol HCL 50 MG TABLET PO STA (00:26)
[2025-03-16] MEDS ORDERED: ENOXAPARIN INJ 40 MG/0.4 ML SYR SQ SCH (09:00)
--- NOTE | 2025-03-16 10:10 | Pre Anesthesia Assessment ---
Date of Service March 16, 2025 Pre Sedation Assessment Vital Signs Temp Pulse Pulse Resp BP BP BP 03/16/25 09:20 36.6 C 41 L 18 177/47 H 03/16/25 09:04 155/53 H 03/16/25 07:34 03/16/25 07:19 36.6 C 36 L 16 180/56 H 03/16/25 07:00 39 L 03/16/25 04:26 37.4 C 51 L 19 141/51 H 03/15/25 23:45 45 L 03/15/25 23:20 37.2 C 40 L 23 182/56 H 03/15/25 20:00 03/15/25 19:39 37.0 C 44 L 18 214/70 H 03/15/25 16:23 03/15/25 16:13 36.6 C 46 L 22 182/51 H 03/15/25 13:01 193/71 H 03/15/25 13:00 38 L 23 03/15/25 12:49 39 L 03/15/25 12:42 38 L 33 H 03/15/25 12:30 228/91 H 03/15/25 12:18 39 L 20 03/15/25 12:06 41 L 21 03/15/25 12:03 215/70 H 03/15/25 12:03 215/70 H 03/15/25 11:31 206/65 H 03/15/25 11:18 39 L 18 03/15/25 11:09 39 L 22 03/15/25 10:56 221/81 H 03/15/25 10:48 40 L 23 221/81 H 03/15/25 10:15 40 L 22 Pulse Ox O2 Del Method O2 Flow Rate 03/16/25 09:20 98 Nasal Cannula 4 03/16/25 09:04 03/16/25 07:34 Nasal Cannula 4 03/16/25 07:19 95 Nasal Cannula 4 03/16/25 07:00 03/16/25 04:26 96 Nasal Cannula 4 03/15/25 23:45 03/15/25 23:20 96 Nasal Cannula 4 03/15/25 20:00 Nasal Cannula 4 03/15/25 19:39 94 Nasal Cannula 4 03/15/25 16:23 Nasal Cannula 2 03/15/25 16:13 99 Nasal Cannula 2 03/15/25 13:01 03/15/25 13:00 95 03/15/25 12:49 03/15/25 12:42 80 L 03/15/25 12:30 03/15/25 12:18 90 03/15/25 12:06 92 03/15/25 12:03 03/15/25 12:03 03/15/25 11:31 03/15/25 11:18 95 03/15/25 11:09 96 03/15/25 10:56 03/15/25 10:48 96 03/15/25 10:15 95 Cardiovascular + bradycardic Respiratory + respiratory effort normal Pre-Sedation Airway Assessment Smoking Status: Former smoker Hx Sleep Apnea: No Hx Difficult Intubation: No Short, Thick Neck: No Thyromental Distance: > or= 3.5 Finger Breadths Oral Cavity: + WNL Mallampati Class: III ASA: ASA3 NPO Status Date of Last Intake of Fluids: 03/15/25 Time of Last Intake of Fluids: 22:00 Date of Last Intake of Solid Food: 03/15/25 Time of Last Intake of Solid Foods: 22:00 Procedure Planning Contraindications for Sedation: none Current Medications Reviewed: Yes Notes The planned sedation has been discussed with the patient. Informed Consent was obtained. I have identified the patient, determined the appropriateness of sedation and have assessed the patient immediately prior to the procedure. All medicine(s) and interventions are by my order.
[2025-03-16] MEDS: ceFAZolin 330 MG/ML 1 GM VIAL ONE (10:17)
[2025-03-16] MEDS: BUPIVACAINE 0.25% PF 30 ML VIAL ONE (10:17)
[2025-03-16] MEDS: LIDOCAINE 1% LOCAL 20 ML VIAL ONE (10:17)
[2025-03-16] MEDS: WATER, STERILE FOR INJ 10 ML VIAL ONE (10:17)
[2025-03-16] MEDS: VANCOMYCIN HCL 1000MG/20ML VIAL ONE (10:17)
[2025-03-16] MEDS: fentaNYL citrate PF 100 MCG/2 ML VIAL ONE ×2 (11:22→11:40)
[2025-03-16] MEDS: MIDAZOLAM HCL 5 MG/ML 1 ML VIAL ONE (11:23)
[2025-03-16] MEDS: diphenhydrAMINE 50 MG/ML VIAL ONE (11:39)
--- NOTE | 2025-03-16 11:49 | Post Anesthesia Assessment ---
Date of Service March 16, 2025 Post Sedation Assessment Vital Signs Temp Pulse Pulse Resp BP BP BP 03/16/25 09:20 36.6 C 41 L 18 177/47 H 03/16/25 09:04 155/53 H 03/16/25 07:34 03/16/25 07:19 36.6 C 36 L 16 180/56 H 03/16/25 07:00 39 L 03/16/25 04:26 37.4 C 51 L 19 141/51 H 03/15/25 23:45 45 L 03/15/25 23:20 37.2 C 40 L 23 182/56 H 03/15/25 20:00 03/15/25 19:39 37.0 C 44 L 18 214/70 H 03/15/25 16:23 03/15/25 16:13 36.6 C 46 L 22 182/51 H 03/15/25 13:01 193/71 H 03/15/25 13:00 38 L 23 03/15/25 12:49 39 L 03/15/25 12:42 38 L 33 H 03/15/25 12:30 228/91 H 03/15/25 12:18 39 L 20 03/15/25 12:06 41 L 21 03/15/25 12:03 215/70 H 03/15/25 12:03 215/70 H Pulse Ox O2 Del Method O2 Flow Rate 03/16/25 09:20 98 Nasal Cannula 4 03/16/25 09:04 03/16/25 07:34 Nasal Cannula 4 03/16/25 07:19 95 Nasal Cannula 4 03/16/25 07:00 03/16/25 04:26 96 Nasal Cannula 4 03/15/25 23:45 03/15/25 23:20 96 Nasal Cannula 4 03/15/25 20:00 Nasal Cannula 4 03/15/25 19:39 94 Nasal Cannula 4 03/15/25 16:23 Nasal Cannula 2 03/15/25 16:13 99 Nasal Cannula 2 03/15/25 13:01 03/15/25 13:00 95 03/15/25 12:49 03/15/25 12:42 80 L 03/15/25 12:30 03/15/25 12:18 90 03/15/25 12:06 92 03/15/25 12:03 03/15/25 12:03 Recovery Score Activity: Moves 4 extremities Respiration: Deep Breath/Cough Circulation: +/-20% PreAnes Value Consciousness: Fully Awake Oxygen Saturation: O2 needed for >90% Discharge Sedation Level of Care: Fast Track Phase II Post Sedation Plan On clinical assessment, the patient appears to have tolerated the sedation without complications. Patient is recovering as anticipated. Patient will continue to be monitored by nursing and may be discharged when sedation discharge criteria are met per below protocol. Upon Completions of procedure up to 15 minutes continue every 5 minute vital signs and the P.A.R. score; then discharge to a Phase I or Fast Track to Phase II per the following guidelines: * Discharge Patient to appropriate Phase II area if PAR is 8 or greater or return to pre- procedure baseline. The post - procedure orders will be as directed. * If PAR score is less than 8 or not return to pre-procedure baseline then patient will follow Phase I monitoring till PAR is reached for Phase II. The Phase I may be done in procedure room or may call to secure a Phase I area. * If naloxone or flumazenil are used for reversal, hold in Phase I for continued monitoring from when last reversal dose was given for a minimum of 60 minutes or longer pending the nurse and/or physician discretion of patient condition before discharge to Phase II. Please call the Sedation Physician to re-evaluate and complete post-note for discharge to Phase II area. Do NOT discharge from procedure sedation or Phase 1 until post- sedation evaluation note is complete by procedure /sedation MD Sedation Discharge Instructions to be given to the patient at discharge to home.
--- NOTE | 2025-03-16 11:49 | Electrophysiology Report ---
Date of Service March 16, 2025 Electrophysiology Procedure Electrophysiology Procedure Report Procedure performed: Implantation of dual-chamber permanent pacemaker with septal pacing lead Staff dance entertainer: Luis Palomares MD Indication: The patient is an 79-year-old woman with a history of symptomatic bradycardia. She has high degree AV block and was referred for pacemaker implantation due to symptomatic nonreversible AV node dysfunction. A dual- chamber device was selected as she is currently in sinus rhythm and wished to maintain AV synchrony. Procedure in detail: The patient was informed of the risks benefits and alternatives to the intended procedure and she wished to proceed. She was taken to the electrophysiology suite in a fasting state. A preoperative antibiotic had been administered. The patient was monitored electrocardiographically throughout today's procedure and conscious sedation was administered per protocol. The left upper pectoral area was prepped and draped in usual sterile fashion. This area was anesthetized using subcutaneous administration of a xylocaine solution. An incision was made at this site and carried down to the prepectoralis fascia using sharp dissection. Electrocautery was also employed for dissection as well as for hemostasis. A device pocket was fashioned tissues above the pectoralis muscle. Subsequent to this maneuver the left axillary vein was accessed using modified Seldinger technique. A sheath was placed over guidewire and used to facilitate passage of a guiding catheter for mapping of the interventricular septum. Once an appropriate location was identified a pacing lead was advanced into the interventricular septum until the appropriate electrophysiologic characteristics were obtained. At this point the guiding catheter was removed. The proximal portion of the lead was then sutured the prepectoralis fascia using nonabsorbable suture. A sheath was placed over the remaining guidewire and used to facilitate passage of a pacing lead to the right atrium under fluoroscopic guidance. Adequate sensing and threshold parameters were obtained prior to active fixation of this lead to the endocardial surface. The proximal portion of the leads were then sutured the prepectoral fascia using nonabsorbable suture. The device pocket was irrigated with antibiotic solution. The leads were then attached to the device. The device and leads were then placed in the pocket and pocket was closed in 3 layers of absorbable suture. Steri-Strips and sterile dressing were applied. The device was tested noninvasively prior to conclusion the procedure. The patient tolerated procedure well there no immediate complications. Equipment used: New pulse generator: Planogrammer Usabilla. Model number: [id number] serial number [id number] Right atrial lead: Planogrammer Medtronic. Model number: [id number] serial number [id number] Right ventricular lead: Planogrammer Medtronic. Model number: 3830 serial number [id number] Measured data: Right atrial lead: P waves measured 2.4 mV. Pacing threshold was 1 V at 0.4 ms with a pacing PINS of 532 ohms Right ventricular lead: R waves measure 7.6 mV. Pacing threshold 0.75 V at 0.4 ms with a pacing PINS of 760 ohms Impression: Successful implantation of dual-chamber permanent pacemaker with septal pacing lead [facility] [place] Electrophysiology codes Pacing Procedure 1: Pacin Insert/Replace Pacer A & V Miscellaneous Procedures Procedure 1: EP Miscellaneous: 61133-56 Vengraphy, extremity PG Moderate Sedation Codes Moderate Sedation Codes Procedure 1: Sedation/Anesthesia: 82639 Mod Sedation by the same physician;Init15 Min Child Age 5 & Up Procedure 2: Sedation/Anesthesia: 31367 Mod Sedation by the same physician; Ea [id number] Minutes
[2025-03-16] MEDS: ONDANSETRON INJ 2 MG/ML 2 ML VIAL ONE (11:56)
--- NOTE | 2025-03-16 12:27 | Electrocardiogram Report ---
Test Reason : Blood Pressure : */* mmHG Vent. Rate : 40 BPM Atrial Rate : 40 BPM P-R Int : 204 ms QRS Dur : 140 ms QT Int : 532 ms P-R-T Axes : 11 9 118 degrees QTcB Int : 433 ms Marked sinus bradycardia Left bundle branch block Abnormal ECG When compared with ECG of 25-Mar-2019 08:55, Vent. rate has decreased by 22 bpm Left bundle branch block is now Present Confirmed by Adarsh Sifuentes ([id number]) on 03/16/2025 12:27:16 PM Referred By: REFERRED SELF Confirmed By: Adarsh Sifuentes
[2025-03-16] MEDS: oxyCODONE HCL IR 5 MG TAB (IMMEDIATE RELEASE) PO PRN (15:28)
--- NOTE | 2025-03-16 17:20 | Hospitalist Progress Note ---
Date of Service March 16, 2025 Assessment & Plan (1) Second degree AV block: (2) HTN (hypertension): (3) Symptomatic bradycardia: (4) Borderline type 2 diabetes mellitus: (5) H/O atrial fibrillation without current medication: (6) Chronic pain: Plan This is an 79-year-old female who presented with exertional dyspnea and fatigue, was found to be bradycardic. EKG showed second-degree heart block. Patient was evaluated by cardiology. s/p pacemaker placement 03/16/25 #Second-degree heart block TSH normal Lyme screen negative -history of afib no on any rate controlling meds, remote history, currently not on anticoagulation, Not on any rate controlling medications Heart block and symptomatic bradycardia: Likely etiology for her symptoms Cardiology pacemaker placement # Hypertensive urgency- resolved Blood pressure quite elevated Will treat with IV hydralazine as needed # Prediabetes A1c came back mildly elevated at 6.5 Per PCP notes, she has declined starting hypoglycemic agents Full code VTE prophylaxis: SCDs. Admission and Anticipated Discharge Date Admission Date: March 15, 2025 Subjective pt still slightly sedate from procedure of pacemaker placement Physical Exam Physical Exam: pacemaker site c/d/i cardiac is regular lungs clear daughter at bedside Results & Data Results & Data Vital Signs (Past 12 Hours) Vital Signs Temp Pulse Pulse Pulse Resp BP BP 03/16/25 16:32 98.6 F 80 16 115/69 03/16/25 15:00 81 153/68 H 03/16/25 14:20 98.6 F 59 L 16 182/66 H 03/16/25 13:30 99.0 F 64 16 173/61 H 03/16/25 13:00 98.8 F 61 14 161/62 H 03/16/25 12:57 60 03/16/25 12:34 99.3 F 62 16 160/63 H 03/16/25 12:19 98.6 F 59 L 18 179/65 H 03/16/25 12:10 64 16 166/62 H 03/16/25 11:54 67 16 170/64 H 03/16/25 09:20 97.9 F 41 L 18 177/47 H 03/16/25 09:04 155/53 H 03/16/25 07:34 03/16/25 07:19 97.9 F 36 L 16 180/56 H 03/16/25 07:00 39 L Pulse Ox O2 Del Method O2 Flow Rate 03/16/25 16:32 91 Room Air 03/16/25 15:00 03/16/25 14:20 95 Nasal Cannula 2 03/16/25 13:30 94 Nasal Cannula 2 03/16/25 13:00 94 Nasal Cannula 2 03/16/25 12:57 03/16/25 12:34 92 Nasal Cannula 2 03/16/25 12:19 90 Nasal Cannula 2 03/16/25 12:10 93 Nasal Cannula 3 03/16/25 11:54 93 Nasal Cannula 3 03/16/25 09:20 98 Nasal Cannula 4 03/16/25 09:04 03/16/25 07:34 Nasal Cannula 4 03/16/25 07:19 95 Nasal Cannula 4 03/16/25 07:00 PG Care Time/CCT Total # of Minutes Spent Total Time Spent with Patient: Total time spent is greater than 50% in coordination of care (as documented) at patient's floor/unit and/or counseling patient: Coding Level of Care Code 61730 SUB INP/OBS CARE 3/50MIN Diagnoses Second degree AV block I44.1 HTN (hypertension) I10 Symptomatic bradycardia R00.1 Borderline type 2 diabetes mellitus R73.03 H/O atrial fibrillation without current medication Z86.79 Chronic pain syndrome G89.4 Chronic pain type: chronic pain syndrome (6) Chronic pain Chronic pain type: chronic pain syndrome Qualified Code(s): G89.4 - Chronic pain syndrome
[2025-03-16] MEDS: ceFAZolin 2000MG 2,000 MG/15 ML SYR IV ONE (18:21)
[2025-03-16] MEDS: ACETAMINOPHEN 325 MG TAB PO PRN (18:25)
--- NOTE | 2025-03-16 18:32 | Electrocardiogram Report ---
Test Reason : Blood Pressure : */* mmHG Vent. Rate : 61 BPM Atrial Rate : 61 BPM P-R Int : 136 ms QRS Dur : 138 ms QT Int : 492 ms P-R-T Axes : 35 -3 123 degrees QTcB Int : 495 ms Atrial-sensed ventricular-paced rhythm Abnormal ECG When compared with ECG of 15-Mar-2025 08:39, Electronic ventricular pacemaker has replaced Sinus rhythm Vent. rate has increased by 21 bpm Confirmed by Luis Palomares ([id number]) on 03/16/2025 6:32:04 PM Referred By: REFERRED SELF Confirmed By: Luis Palomares
--- NOTE | 2025-03-17 00:46 | Communication Note ---
Date of Service: March 17, 2025 Notified by RN that patient was reporting 10/10 lower abdominal pain, refractory to PRN oxycodone and Tylenol. Patient seen at bedside, states that she has been having intermittent abdominal pain over the past couple days but much more severe this evening. Describes pain as intermittent stabbing sensation in LLQ and RLQ. Is not sure but does not think she has been passing gas today. Last bowel movement yesterday, normal per patient. Denies constipation over past several days. Patient is afebrile but RN notes that sheets had to be changed earlier due to cold sweats. Denies nausea or vomiting. On exam, bowel sounds present, normal. Abdomen is extremely tender to palpation, so much so that gentle pressure applied with a stethoscope was enough to make patient jump. Tenderness appreciated in all four quadrants, more pronounced in RLQ and LLQ. KUB ordered prior to examining patient. Based on abdominal exam, additional labs/imaging ordered: CT A/P with IV contrast, CBC, CMP, lactate, lipase. Labs unremarkable - No leukocytosis, negative lactate and lipase. KUB: Dilated small bowel loops with prominent large bowel loops. Differential could include bowel obstruction and ileus CT A/P with IV contrast: No focal or diffuse bowel wall thickening or evidence of bowel obstruction is identified - Based on this, suspect post-op ileus Patient made NPO, maintenance IV fluids started. Tylenol PRN for pain control, patient initially given one dose hydromorphone but will try to avoid further opioids if possible. Resident Activity Tracking Resident Involvement: Resident Care Provided Care Provided: [facility]
[2025-03-17] MEDS: HYDROmorphone INJ 0.5 MG/0.5 ML SYR IV STA (00:59)
[2025-03-17] MEDS: ACETAMINOPHEN 1,000 MG/100 ML VIAL IV STA (01:00)
[2025-03-17 01:06] LABS: Basophils # (auto) 0.03 K/uL (0.00-0.20); Basophils % (auto) 0.4 %; Eosinophils # (auto) 0.05 K/uL (0.00-0.50); Eosinophils % (auto) 0.7 %; Hematocrit (blood only) 41.6 % (37.0-47.0); Hemoglobin 13.4 g/dl (12.0-16.0); Immature Granulocytes # (auto) 0.03 K/uL (0.01-0.20); Immature Granulocytes % (auto) 0.4 %; Lymphocytes # (auto) 1.49 K/uL (1.20-3.40); Mean Corpuscular Hemoglobin 27.1 pg (25.0-34.0); Mean Corpuscular Hgb Conc 32.2 g/dL (32.0-36.0); Mean Platelet Volume 11.8 fL (9.4-12.4); Monocytes # (auto) 0.62 K/uL (0.11-0.59); Monocytes % (auto) 8.3 %; Neutrophils # (auto) 5.24 K/uL (1.40-6.50); Neutrophils % (auto) 70.2 %; Platelet Count 185 K/uL (130-400); RDW Coefficient of Variation 14.7 % (11.5-14.5); RDW Standard Deviation 45.1 fL (36.4-46.3); Red Blood Count 4.95 M/uL (4.20-5.40); White Blood Count 7.46 K/ul (4.8-10.8)
[2025-03-17 01:17] LABS: Albumin Level 3.9 gm/dl (3.4-5.0); Calcium 8.8 mg/dl (8.6-10.3); Potassium 3.7 mmol/L (3.5-5.1)
[2025-03-17 01:24] LABS: Albumin Globulin Ratio 1.2 (0.9-2); BUN Creatinine Ratio 24.6 (10-20); Creatinine Clr Calc Pharmacy 35.7 ml/min; Globulin 3.3 gm/dl (2.5-4.0); Total Protein 7.2 gm/dl (6.0-8.3)
--- NOTE | 2025-03-17 01:27 | XRay Report ---
EXAM: XR KUB/Abdomen 1 view CLINICAL HISTORY: Abdominal pain, eval for ileus/SBO TECHNIQUE: X-ray images of the abdomen were obtained in supine and upright positions. COMPARISON: 03/25/2019 FINDINGS: Gas Pattern: There are dilated small bowel loops with prominent large bowel loops. Fecal loading is identified in the ascending colon. Differential could include bowel obstruction and ileus. Soft Tissues: Soft tissues of the abdomen appear normal without evidence of masses or calcifications. Cholecystectomy clips are seen in right upper abdomen. Degenerative changes are identified at both hip, sacroiliac joints, and lumbar spine. IMPRESSION: Dilated small bowel loops with prominent large bowel loops. Fecal loading in the ascending colon. Differential could include bowel obstruction and ileus. Needs clinical correlation and and follow-up x-ray/CT scan if clinically warranted. (new finding) Electronically signed by Salomón Whitten 03-17-2025 01:26 AM
[2025-03-17] MEDS: LACTATED RINGER'S 1,000 ML IV SCH (02:38)
[2025-03-17] MEDS: OPTIRAY 320 100ml IV ONE (02:59)
--- NOTE | 2025-03-17 04:43 | CT Scan Report ---
EXAM: CT abd pelvis IV con only CLINICAL HISTORY: sharp diffuse abd pain TECHNIQUE: Contiguous axial images were obtained from the level of the diaphragm to the pubic symphysis with intravenous contrast. Coronal and sagittal reconstructions were likewise performed and indicated to increase the sensitivity for detecting clinically relevant pathology. If IV contrast material had not been administered, the likelihood of detecting abnormalities relevant to the patient's condition would have been substantially decreased. CT scan was performed according to ALARA (as low as reasonable achievable). 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 No focal liver lesions are seen. There is no intra or extrahepatic biliary ductal dilatation. Hepatic vasculature is patent. The gallbladder is removed. Mild dilated common bile duct due to sequelae of post-cholecystectomy The spleen, pancreas, and adrenal glands are unremarkable. The kidneys are normal in size and attenuation. There is no hydronephrosis or perinephric fat stranding. No renal calculi or renal masses are identified. The ureters are normal in caliber and no ureteral calculi are seen. Hyperdense contents are noted within the urinary bladder. Could represent excreted contrast. A tiny intraluminal air focus is also noted within the urinary bladder ( clinical correlation for recent catheterization is suggested.). However, clinical/lab correlation / ultrasound correlation is suggested. Pelvic viscera are unremarkable. No focal or diffuse bowel wall thickening or evidence of bowel obstruction is identified. The appendix is visualized in the right lower quadrant and appears within normal limits. Abdominal and pelvic vasculature is patent. No adenopathy or fluid collections are seen. No aggressive appearing osseous lesions are identified. Diffuse atherosclerotic calcification is noted involving aorta iliac arteries. IMPRESSION: 1. Mild bilateral pleural effusion with basal subsegmental collapse of both lower lobes are seen -new finding. 2. Mild dilated common bile duct likely due to sequelae of post-cholecystectomy / benign stricture. 3. Hyperdense contents are noted within the urinary bladder. Could represent excreted contrast. A tiny intraluminal air focus is also noted within the urinary bladder (clinical correlation for recent catheterization is suggested.). However, clinical/lab/ultrasound correlation is suggested. Electronically signed by Loy Perez 03-17-2025 04:42 AM
--- NOTE | 2025-03-17 08:05 | Hospitalist Progress Note ---
Date of Service March 17, 2025 Assessment & Plan (1) Second degree AV block: (2) HTN (hypertension): (3) Borderline type 2 diabetes mellitus: (4) H/O atrial fibrillation without current medication: (5) Chronic pain: Plan This is an 79-year-old female who presented with exertional dyspnea and fatigue, was found to be bradycardic. EKG showed second-degree heart block. Patient was evaluated by cardiology. s/p pacemaker placement 03/16/25 #Second-degree heart block TSH normal Lyme screen negative -history of afib no on any rate controlling meds, remote history, currently not on anticoagulation, Not on any rate controlling medications Heart block and symptomatic bradycardia: Likely etiology for her symptoms Cardiology pacemaker placement, post placement CXR with suggestion of pulmonary edema, lasix given 03/17 #abdominal pain, urinary retention, did have st cath ua cultured but < 1000K colonies, , did have perioperative cefazolin iv, await cultures, CT abd/pelvis without significant changes, and serology is without leukocytosis or acidosis, no skin changes to consider shingles at the moment, supportive are and clinical re evaluation # Hypertensive urgency- resolved Blood pressure quite elevated Will treat with IV hydralazine as needed # Prediabetes A1c came back mildly elevated at 6.5 Per PCP notes, she has declined starting hypoglycemic agents Full code VTE prophylaxis: SCDs. Admission and Anticipated Discharge Date Admission Date: March 15, 2025 Subjective pt is s/p pacemaker but has Lower abdominal pain out of proportion to her clinical and image finding Pain is severe and limiting, limits movement Physical Exam Physical Exam: pacemaker site is clean and dry, minimal tenderness cardiac is regular with KARENA lungs are clear abd is soft, and has no skin changes where her pain is most severe no rebound no guarding Results & Data Results & Data Vital Signs (Past 12 Hours) Vital Signs Temp Pulse Pulse Resp BP Pulse Ox O2 Del Method 03/17/25 03:45 99.0 F 60 25 H 157/61 H 95 Nasal Cannula 03/17/25 01:00 78 20 163/67 H 90 Nasal Cannula 03/17/25 00:26 98.4 F 75 184/72 H 90 Nasal Cannula 03/16/25 21:45 60 O2 Flow Rate 03/17/25 03:45 2 03/17/25 01:00 2 03/17/25 00:26 1.5 03/16/25 21:45 Laboratory Results review cbc review Chemistry, mild adrianna review CT and ordered contrast, review no appendicitis or pelvic changes PG Care Time/CCT Total # of Minutes Spent Total Time Spent with Patient: Total time spent is greater than 50% in coordination of care (as documented) at patient's floor/unit and/or counseling patient: Coding Level of Care Code 61849 SUB INP/OBS CARE 3/50MIN Diagnoses Second degree AV block I44.1 HTN (hypertension) I10 Borderline type 2 diabetes mellitus R73.03 H/O atrial fibrillation without current medication Z86.79 Chronic pain syndrome G89.4 Chronic pain type: chronic pain syndrome (5) Chronic pain Chronic pain type: chronic pain syndrome Qualified Code(s): G89.4 - Chronic pain syndrome
[2025-03-17] MEDS: FUROSEMIDE INJ 20 MG/2 ML VIAL IV ONE (08:43)
--- NOTE | 2025-03-17 08:56 | XRay Report ---
EXAM: XR chest 2V PA/lateral CLINICAL HISTORY: EVALUATION FOR PNEUMOTHORAX AND LEAD PLACEMENT JTF/JMT. TECHNIQUE: X-ray images of the chest were obtained in AP and lateral projections. COMPARISON: Prior chest X-ray dated 03/15/2025. FINDINGS: Pulmonary Parenchyma: Blunted both pleural recesses suggesting mild bilateral pleural effusion, new on interval. OBX.5.1OBX.5.1.1 Exaggerated lung markings and parahilar reticulations, suggesting pulmonary vascular /OBX.5.1.1OBX.5.1.2 interstitial congestion, interval progression./OBX.5.1.2/OBX.5.1 No pneumothorax. Heart and Mediastinum: Heart size and shape are normal. No mediastinal widening or masses. No hilar or mediastinal lymphadenopathy. Interval application of an external cardiac pacemaker seen in adequate place. Bony Thorax: Bony thorax appears intact without fractures or deformities. Soft Tissues: Soft tissues overlying the chest wall are unremarkable. IMPRESSION: 1. No pneumothorax. 2. Blunted both pleural recesses, suggesting mild bilateral pleural effusion, new on interval. OBX.5.1OBX.5.1.13. Exaggerated lung markings and parahilar reticulations, suggesting pulmonary vascular /OBX.5.1.1OBX.5.1.2 interstitial congestion, interval progression./OBX.5.1.2/OBX.5.1 4. Interval application of an external cardiac pacemaker seen inanadequate place. Electronically signed by Salomón Whitten 03-17-2025 08:56 AM
[2025-03-17] MEDS ORDERED: HYDROmorphone INJ 0.5 MG/0.5 ML SYR IV PRN (09:43)
--- NOTE | 2025-03-17 10:00 | Cardiology Progress Note ---
Date of Service March 17, 2025 Assessment & Plan (1) Symptomatic bradycardia: (2) Second degree AV block: (3) H/O atrial fibrillation without current medication: Plan 1. Symptomatic bradycardia: Resolved with implantation of dual-chamber permanent pacemaker. No evident complication. 2. Second-degree AV block: Resolved. 3. Atrial fibrillation: None documented during this admission. From a purely device standpoint she would be stable for discharge. However, given her ongoing abdominal complaints she is likely to remain in the hospital. Admission and Anticipated Discharge Date Admission Date: March 15, 2025 Subjective This morning the patient's main complaint is lower abdominal and pelvic discomfort. This been present since yesterday. Improved with narcotics but recurs once her medication wears off. Also very tender to palpation and much worse with coughing or movement. No nausea or vomiting. No breathing difficulty. No pain at the device implant site. Review of Systems Review of Systems: Per HPI Physical Exam Physical Exam: She is alert and oriented x3. Mood affect appear normal. She answered all questions appropriately. HEENT: Sclerae are anicteric. Pupils are equal and reactive to light and accommodation. Extraocular movements were intact. Neuro: Cranial nerves intact Lungs: Lungs are clear to auscultation bilaterally. There are no rales wheezes or rhonchi. She has normal respiratory effort without use of accessory muscles. There is normal pulmonary excursion. Cardiac: The rhythm was regular. Rate was slow. S1 and S2 were normal. Soft holosystolic murmur. The PMI was not markedly displaced on palpation Chest: Device implant site without erythema, tenderness, swelling or drainage Abdomen: Nondistended. Extremities: Patient has bilateral radial pulses that are equal in intensity. There is no evidence cyanosis or clubbing. Mild lower extremity edema bilaterally. Dry skin. Some mild erythema around the ankles bilaterally. Skin: There are no rashes noted on examination today. ENMT: Mallampati Class: III Respiratory: normal respiratory effort Cardiovascular: Rate/Rhythm: + bradycardic Results & Data Vital Signs (Past 12 Hours) Vital Signs Temp Pulse Pulse Resp BP Pulse Ox O2 Del Method 03/17/25 08:19 37.7 C H 69 17 149/67 H 90 Nasal Cannula 03/17/25 08:00 60 03/17/25 08:00 Nasal Cannula 03/17/25 03:45 37.2 C 60 25 H 157/61 H 95 Nasal Cannula 03/17/25 01:00 78 20 163/67 H 90 Nasal Cannula 03/17/25 00:26 36.9 C 75 184/72 H 90 Nasal Cannula O2 Flow Rate 03/17/25 08:19 2 03/17/25 08:00 03/17/25 08:00 2 03/17/25 03:45 2 03/17/25 01:00 2 03/17/25 00:26 1.5 Laboratory Results Abnormal Lab Results 03/17/25 00:47 WBC 7.46 RBC 4.95 Hgb 13.4 Hct 41.6 MCV 84.0 MCH 27.1 MCHC 32.2 RDW Std Deviation 45.1 RDW Coeff of Nasima 14.7 H Plt Count 185 MPV 11.8 Immature Gran % (Auto) 0.4 Neut % (Auto) 70.2 Lymph % (Auto) 20.0 [place] % (Auto) 8.3 Eos % (Auto) 0.7 Baso % (Auto) 0.4 Neut # (Auto) 5.24 Lymph # (Auto) 1.49 [place] # (Auto) 0.62 H Eos # (Auto) 0.05 Baso # (Auto) 0.03 Immature Gran # (Auto) 0.03 Sodium 138 Potassium 3.7 Chloride 106 Carbon Dioxide 24 Anion Gap 8 BUN 33 H Creatinine 1.34 H Est Cr Clr Drug Dosing 35.7 eGFR 39.84 BUN/Creatinine Ratio 24.6 H Glucose 115 H Lactate 1.5 Calcium 8.8 Total Bilirubin 1.0 AST 25 ALT 17 Alkaline Phosphatase 80 Total Protein 7.2 Albumin 3.9 Globulin 3.3 Albumin/Globulin Ratio 1.2 Lipase 20 Diagnostic Findings Chest x-ray demonstrated stable lead position without pneumothorax. Possible pulmonary vascular congestion. I performed Colie device interrogation of her dual-chamber permanent pacemaker. Normal sensing threshold on both leads.
[2025-03-17] MEDS: HYDROmorphone INJ 1 MG/ML SYRINGE IV PRN (10:05)
--- NOTE | 2025-03-17 12:35 | CT Scan Report ---
ABDOMEN AND PELVIS CT WITH ORAL CONTRAST CT DOSE: 1507.39 mGy.cm HISTORY: Acute right lower quadrant abdominal pain really only want to see appendix TECHNIQUE: Multiaxial CT images of the abdomen and pelvis were performed following the use of oral co ntrast. A dose lowering technique was utilized adhering to the principles of ALARA. COMPARISON STUDY: CT abdomen and pelvis of same day at 2:55 AM, 03/25/2019 FINDINGS: Small pleural effusions with dependent bibasilar consolidation. Groundglass opacities with intralobular septal thickening. Cardiomegaly with partially imaged pacer leads. No pneumatosis or pne umoperitoneum. Unremarkable spleen and adrenal glands appear mildly atrophic pancreas. Cholecystectomy with unchange d intrahepatic and extrahepatic biliary ductal dilation, likely a postsurgical basis. There is patenc y of the hepatic and portal veins. No liver lesions are seen. Unremarkable kidneys. No hydronephrosis . There is retained contrast within the renal collecting systems. Unremarkable urinary bladder. Hyste rectomy. Atherosclerosis of the aorta and branch vessels. No pathologically enlarged lymph nodes iden tified. No bowel obstruction or bowel wall thickening. Nonvisualization of the appendix. No secondary signs o f acute appendicitis. Punctate sclerotic foci of the proximal femora and pelvis again noted suggestiv e of bone islands. No acute fracture. IMPRESSION: 1. No acute intra-abdominal or intrapelvic abnormality. 2. No CT evidence of acute appendicitis. 3. Cholecystectomy with unchanged chronic likely postsurgical biliary duct dilation which is stable d ating back to the 2019 exam. 4. Cardiomegaly with suggestion of mild interstitial pulmonary edema, small pleural effusions with de pendent bibasilar consolidation favoring atelectasis. ACT 112: Negative or not required by law. The above report was generated using voice recognition software. It may contain grammatical, syntax o r spelling errors. Electronically signed by: Gume Wheeler M.D. 03/17/2025 12:33 PM
--- NOTE | 2025-03-17 18:39 | Hospitalist Progress Note ---
Date of Service March 17, 2025 Assessment & Plan (1) Second degree AV block: (2) HTN (hypertension): (3) Borderline type 2 diabetes mellitus: (4) H/O atrial fibrillation without current medication: (5) Chronic pain: Plan This is an 79-year-old female who presented with exertional dyspnea and fatigue, was found to be bradycardic. EKG showed second-degree heart block. Patient was evaluated by cardiology. s/p pacemaker placement 03/16/25 #Second-degree heart block TSH normal Lyme screen negative -history of afib no on any rate controlling meds, remote history, currently not on anticoagulation, Not on any rate controlling medications Heart block and symptomatic bradycardia: Likely etiology for her symptoms Cardiology pacemaker placement, post placement CXR with suggestion of pulmonary edema, lasix given 03/17 *Demand ischemia not acs #abdominal pain, urinary retention, did have st cath ua cultured but < 1000K colonies, , did have perioperative cefazolin iv, await cultures, CT abd/pelvis without significant changes, and serology is without leukocytosis or acidosis, no skin changes to consider shingles at the moment, supportive are and clinical re evaluation # Hypertensive urgency- resolved Blood pressure quite elevated Will treat with IV hydralazine as needed # Prediabetes A1c came back mildly elevated at 6.5 Per PCP notes, she has declined starting hypoglycemic agents Full code VTE prophylaxis: SCDs. Admission and Anticipated Discharge Date Admission Date: March 15, 2025 Results & Data Results & Data Vital Signs (Past 12 Hours) Vital Signs Temp Pulse Pulse Resp BP Pulse Ox O2 Del Method 03/17/25 16:52 99.0 F 79 18 157/64 H 95 Nasal Cannula 03/17/25 14:21 65 03/17/25 13:00 149/66 H 03/17/25 12:23 183/79 H 03/17/25 11:44 98.4 F 78 18 182/69 H 91 Nasal Cannula 03/17/25 08:19 99.9 F H 69 17 149/67 H 90 Nasal Cannula 03/17/25 08:00 60 03/17/25 08:00 Nasal Cannula O2 Flow Rate 03/17/25 16:52 3 03/17/25 14:21 03/17/25 13:00 03/17/25 12:23 03/17/25 11:44 2 03/17/25 08:19 2 03/17/25 08:00 03/17/25 08:00 2 PG Care Time/CCT Total # of Minutes Spent Total Time Spent with Patient: Total time spent is greater than 50% in coordination of care (as documented) at patient's floor/unit and/or counseling patient: Coding Level of Care Code None Diagnoses Second degree AV block I44.1 HTN (hypertension) I10 Borderline type 2 diabetes mellitus R73.03 H/O atrial fibrillation without current medication Z86.79 Chronic pain syndrome G89.4 Chronic pain type: chronic pain syndrome (5) Chronic pain Chronic pain type: chronic pain syndrome Qualified Code(s): G89.4 - Chronic pain syndrome
--- NOTE | 2025-03-18 06:53 | XRay Report ---
EXAM: XR KUB/Abdomen 1 view CLINICAL HISTORY: 08/14 abd pain, no flatus or BM TECHNIQUE: Radiograph of kub/abdomen was acquired. 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 FINDINGS: Positive contrast is seen in the ascending colon. Non-obstructive, non-specific bowel gas pattern. No significant air fluid levels. Surgical jimenez are seen in right upper abdomen. No evidence of air under diaphragm. No obvious radio opacity overlying kidneys/ureters/urinary bladder. No obvious organomegaly. Degenerative changes are seen in the spine. IMPRESSION: 1. No obvious abnormal bowel dilatation or air fluid levels. 2. Positive oral contrast in ascending colon - likely residual from previous contrast study. 3. Surgical jimenez in right upper quadrant - post cholecystectomy. Electronically signed by Loy Perez 03-18-2025 06:52 AM
[2025-03-18] MEDS: POLYETHYLENE (MIRALAX) 17 GM PACK PO PRN (09:16)
[2025-03-18] MEDS: METHYLNALTREXONE BROMIDE 12 MG/0.6 ML VIAL SQ SCH (09:55)
[2025-03-18] MEDS: FUROSEMIDE INJ 20 MG/2 ML VIAL IV ONE (09:55)
[2025-03-18 09:59] LABS: Basophils # (auto) 0.02 K/uL (0.00-0.20); Basophils % (auto) 0.3 %; Eosinophils # (auto) 0.08 K/uL (0.00-0.50); Eosinophils % (auto) 1.3 %; Hematocrit (blood only) 38.5 % (37.0-47.0); Hemoglobin 12.5 g/dl (12.0-16.0); Immature Granulocytes # (auto) 0.02 K/uL (0.01-0.20); Immature Granulocytes % (auto) 0.3 %; Lymphocytes # (auto) 1.67 K/uL (1.20-3.40); Lymphocytes % (auto) 26.7 %; Mean Corpuscular Hemoglobin 27.3 pg (25.0-34.0); Mean Corpuscular Hgb Conc 32.5 g/dL (32.0-36.0); Mean Corpuscular Volume 84.1 fL (80.0-100.0); Monocytes # (auto) 0.42 K/uL (0.11-0.59); Monocytes % (auto) 6.7 %; Neutrophils # (auto) 4.05 K/uL (1.40-6.50); Neutrophils % (auto) 64.7 %; Platelet Count 209 K/uL (130-400); RDW Coefficient of Variation 14.8 % (11.5-14.5); RDW Standard Deviation 45.1 fL (36.4-46.3); Red Blood Count 4.58 M/uL (4.20-5.40); White Blood Count 6.26 K/ul (4.8-10.8)
[2025-03-18 10:16] LABS: Albumin Globulin Ratio 1.1 (0.9-2); Albumin Level 3.5 gm/dl (3.4-5.0); BUN Creatinine Ratio 30.3 (10-20); Bilirubin,Total 0.9 mg/dl (0.2-1.0); Creatinine Clr Calc Pharmacy 48.8 ml/min; Globulin 3.1 gm/dl (2.5-4.0); Total Protein 6.6 gm/dl (6.0-8.3)
[2025-03-18] MEDS: ACETAMINOPHEN 1,000 MG/100 ML VIAL IV PRN (13:00)
[2025-03-18 13:48] LABS: BUN Creatinine Ratio 30.6 (10-20); Calcium 8.9 mg/dl (8.6-10.3); Creatinine Clr Calc Pharmacy 49.3 ml/min; Magnesium 2.1 mg/dl (1.7-2.4); Potassium 3.8 mmol/L (3.5-5.1)
--- NOTE | 2025-03-18 17:58 | Hospitalist Progress Note ---
Date of Service March 18, 2025 Assessment & Plan (1) Second degree AV block: (2) HTN (hypertension): (3) Borderline type 2 diabetes mellitus: (4) H/O atrial fibrillation without current medication: (5) Chronic pain: Plan This is an 79-year-old female who presented with exertional dyspnea and fatigue, was found to be bradycardic. EKG showed second-degree heart block. Patient was evaluated by cardiology. s/p pacemaker placement 03/16/25 #Second-degree heart block now status post pacemaker placement TSH normal Lyme screen negative -history of afib no on any rate controlling meds, remote history, currently not on anticoagulation, Not on any rate controlling medications Heart block and symptomatic bradycardia: Likely etiology for her symptoms Cardiology pacemaker placement, post placement CXR with suggestion of pulmonary edema, lasix given 03/17 *Demand ischemia not acs #abdominal pain, urinary retention, did have st cath ua cultured but < 1000K colonies, , did have perioperative cefazolin iv, CT abd/pelvis without significant changes, and serology is without leukocytosis or acidosis, no skin changes to consider shingles at the moment, supportive are and clinical re evaluation # Hypertensive urgency- resolved # Prediabetes A1c came back mildly elevated at 6.5 Per PCP notes, she has declined starting hypoglycemic agents Full code VTE prophylaxis: SCDs. Admission and Anticipated Discharge Date Admission Date: March 15, 2025 Subjective pt is s/p pacemaker but continues to have Lower abdominal pain out of proportion to her clinical and image finding Pain is moderate slightly improved pt now out of bed to chair hypoxia improved with diuresis Physical Exam Physical Exam: pacemaker site is clean and dry, minimal tenderness cardiac is regular with KARENA lungs are clear abd is soft, and has no skin changes where her pain is most severe no rebound no guarding Results & Data Results & Data Vital Signs (Past 12 Hours) Vital Signs Temp Pulse Resp BP Pulse Ox O2 Del Method O2 Flow Rate 03/18/25 16:47 97.9 F 64 18 184/72 H 98 Nasal Cannula 2 03/18/25 12:04 98.6 F 67 18 154/63 H 96 Nasal Cannula 2 03/18/25 09:00 Nasal Cannula 2 03/18/25 08:28 98.1 F 64 18 146/67 H 95 Oxymask 5 Laboratory Results Reviewed CBC Reviewed complete metabolic panel PG Care Time/CCT Total # of Minutes Spent Total Time Spent with Patient: Total time spent is greater than 50% in coordination of care (as documented) at patient's floor/unit and/or counseling patient: Coding Level of Care Code 16939 SUB INP/OBS CARE 2/35MIN Diagnoses Second degree AV block I44.1 HTN (hypertension) I10 Borderline type 2 diabetes mellitus R73.03 H/O atrial fibrillation without current medication Z86.79 Chronic pain syndrome G89.4 Chronic pain type: chronic pain syndrome (5) Chronic pain Chronic pain type: chronic pain syndrome Qualified Code(s): G89.4 - Chronic pain syndrome
[2025-03-19] MEDS: traMADol HCL 50 MG TABLET PO STA (00:34)
[2025-03-19 08:15] VITALS: RESP 20
[2025-03-19 11:24] VITALS: BP 182/74; TEMP 98.2; O2SAT 92
--- NOTE | 2025-03-19 14:19 | Discharge Summary ---
Discharge Summary Date of Service March 19, 2025 Principal Dx & Hospital Course #1 = Principal Diagnosis (1) Second degree AV block: (2) HTN (hypertension): (3) Borderline type 2 diabetes mellitus: (4) H/O atrial fibrillation without current medication: (5) Chronic pain: Plan This is an 79-year-old female who presented with exertional dyspnea and fatigue, was found to be bradycardic. EKG showed second-degree heart block. Patient was evaluated by cardiology. s/p pacemaker placement 03/16/25 #Second-degree heart block now status post pacemaker placement TSH normal Lyme screen negative -history of afib no on any rate controlling meds, remote history, currently not on anticoagulation, Not on any rate controlling medications Heart block and symptomatic bradycardia: Likely etiology for her symptoms Cardiology pacemaker placement, post placement CXR with suggestion of pulmonary edema, lasix given 03/17 *Demand ischemia not acs #abdominal pain, urinary retention, did have st cath ua cultured but < 1000K colonies, , did have perioperative cefazolin iv, CT abd/pelvis without significant changes, and serology is without leukocytosis or acidosis, no skin changes to consider shingles at the moment, supportive are and clinical pain has improved with time wonder if was musculoskeletal, # Hypertensive urgency- resolved, does have some isolated systolic hypertension but Diastolic BP ranges are 60 mm hg # Prediabetes A1c came back mildly elevated at 6.5 Per PCP notes, she has declined starting hypoglycemic agents Pt was offered to stay and also consider inpt rehab, she wants to go home, has 7 steps to home but has a walker in house, daughter elected to transport home with [facility] assist van Notes For Next Care Provider heart failure resolved with stabilization of rhythm, no lasix given at dc, eval for need and additional bp control Admission HPI Per Admitting Provider This is an 79-year-old female who takes no medications, presents with the above chief complaint. The patient stated that over the past 2 weeks or so, she has been extremely tired, sleeping more, getting short of breath on minimal exertion. The symptoms have been getting progressively worse and that she decided to get medical attention. In the ER, she was noted to be bradycardic and her EKG showed complete heart block. She is thus being admitted to the hospital. She denied dizziness or lightheadedness. She denied chest pain. She denied loss of consciousness. No fever or chills. No cough. On further questioning, she stated that she had some leg swelling off and on. She denied any recent outdoor activities or tick exposure. She was seen in consultation by cardiology in the emergency room. An echocardiogram has been ordered and the plan is for a pacemaker placement tomorrow. Past medical history 1. Borderline diabetes mellitus. The patient says that she is borderline. Prior notes documented that she declined medications for diabetes 2. History of atrial fibrillation. History of it documented in PCP notes. However patient was not interested in seeing cardiology or starting any medications. Discharge Exam lungs are clear cardiac is regular, abd is soft Discharge Plan Discharge Items Patient Disposition: Home - Self-Care Reason For Visit: DYSPNEA ON EXERTION Discharge Diagnosis: symptomatic bradycardia requiring pacemaker diabetes Hypertension Condition on Discharge: Serious Activity: Per Instructions section Lifting: No more than 10 pounds Lifting Comment: No lifting left arm above shoulder behind neck for 6 weeks Bathing: Keep incision dry Bathing Comment: Keep wound dry and Steri-Strip intact until follow-up Non-emergency contact: Primary Care Provider and Flying [employer]ar Operator Call non-emergency contact if: your symptoms worsen Follow-up/Referrals: uLis Palomares MD [Physician] - (Cardiology office will call to schedule follow up) Geraldine Phipps MD [Primary Care Provider] - 03/24/25 10:00 am (primary care hospital follow up scheduled on 03/24/25 at 10:00 with Jyoti AGUAYO) Diet: Carb Consistent or DM2 Addtl Attending Provider Instructions: With regard to your pacemaker please have no lifting more than 5 pounds to your left arm do not lift your arm above your head unless absolutely positively necessary. Please follow-up with Dr. Palomares If the site becomes red or tender please call Dr. Palomares's office immediately Unfortunately we are not able to find a direct cause of your abdominal pain please keep watch of this and if it continues to worsen report to your primary care provider or the emergency room for reevaluation Pending Studies at Discharge: No Stand-Alone Forms: My [facility], Smoking Cessation Medications and DC Order Prescriptions: Continued cholecalciferol (vitamin D3) 1,250 mcg (50,000 unit) capsule 50,000 unit PO .1qw Qty: 14 0RF Rx Instructions: Take 1 pill once every week for 13 weeks glimepiride 1 mg tablet 1 mg PO DAILY Qty: 30 2RF tramadol 50 mg tablet 50 mg PO Q6H PRN (Reason: Pain) Qty: 100 0RF oxybutynin chloride 5 mg tablet extended release 24hr 5 mg PO DAILY Qty: 30 5RF aspirin [Guadalupe Low Dose Aspirin] 81 mg Tablet,Delayed Release (Dr/Ec) 81 mg PO DAILY Rx Instructions: PT STATES SHE TAKES WHEN SHE REMEMBERS cyanocobalamin (vitamin B-12) [Vitamin B-12] 5,000 mcg/mL Drops 5,000 mcg SUBLINGUAL DAILY metformin 500 mg tablet extended release 24 hr 500 mg PO DAILY Discharge Orders: Discharge Order (Routine); Ordered 03/19/25 Ordered By: Maurisio Steinberg Admission Data Admit Date/Time: 03/15/25 11:14 Attending Provider: Maurisio Steinberg Admit Provider: Annemarie Hendrickson Primary Care Provider: Geraldine Phipps Other Providers: Luis Palomares; Annemarie Hendrickson; [facility] Hospital Stay Data Consultations 03/15/25 10:01 Consult Cardiology Routine 03/15/25 10:27 ED Decision to Admit Stat 03/15/25 14:14 Consult Cardiology Routine Procedures Performed Operation Date: 03/16/25 11:00 Actual Procedures p Pacer with A/V Leads (Dual) - Luis Palomares MD s Venogram, Unilateral - Luis Palomares MD Diagnostic Imagining Performed 03/16/25 07:00 EP Lab Images for PACS ONCE 03/17/25 00:40 CT Abd and Pelvis [CT abd pelvis IV con only] Stat 03/17/25 09:43 CT Abd and Pelvis [CT abd pelvis oral con only] Routine Pending Results Patient Have Any Pending Studies at Discharge: No Discharge Instructions Given to Patient (Per Discharging Provider) With regard to your pacemaker please have no lifting more than 5 pounds to your left arm do not lift your arm above your head unless absolutely positively necessary. Please follow-up with Dr. Palomares If the site becomes red or tender please call Dr. Palomares's office immediately Unfortunately we are not able to find a direct cause of your abdominal pain please keep watch of this and if it continues to worsen report to your primary care provider or the emergency room for reevaluation Total Time Total Time Spent Total Time Spent (In Minutes): It required greater than 30 minutes to prepare this patient for discharge. Coding Level of Care Code 05210 INP/OBS DISCH >30 MIN Diagnoses Second degree AV block I44.1 HTN (hypertension) I10 Borderline type 2 diabetes mellitus R73.03 H/O atrial fibrillation without current medication Z86.79 Chronic pain syndrome G89.4 Chronic pain type: chronic pain syndrome
[2025-03-19 14:52] VITALS: PULSE 59
== END 2025-03-19 15:44 | disposition home health service (06) | DRG 243 ==
LOC: ED 08:35 → SUATTDRO 11:14 → EDINP 11:14 → 4W 16:00